=== PATIENT | female | born 1955 ===

== ENCOUNTER 2024-07-04 14:34 | Emergency (ER) | payer MEDICAID ==
[~2024-07-04] VITALS: Ht 152.4 cm; Wt 41.3 kg
[2024-07-04 14:41] VITALS: O2SAT 99
[2024-07-04] MEDS ORDERED: ONDA4TAB11 PO (18:38)
[2024-07-04] MEDS ORDERED: HYDR-3980 PO (18:38)
[2024-07-04] MEDS: ONDANSETRON ODT 4 MG TAB.RAPDIS SL ONE (18:40)
[2024-07-04] MEDS ORDERED: ONDANSETRON ODT 4 MG TAB.RAPDIS ONE (18:49)
[2024-07-04] MEDS ORDERED: HYDROCODONE/APAP 10-325 MG TABLET ONE (18:50)
[2024-07-04] MEDS ORDERED: PENICILLIN G BENZATHINE 2.4 MMU/4 ML DISP.SYRIN IM ONE (18:50)
[2024-07-04] MEDS: PENICILLIN G BENZATHINE 2.4 MMU/4 ML DISP.SYRIN IM ONE (19:00)
[2024-07-04] MEDS: HYDROCODONE/APAP 10-325 MG TABLET PO ONE (19:00)
== END 2024-07-04 19:35 | disposition home or self-care (01) ==
LOC: ER 14:34
DX: K08.89 Other specified disorders of teeth and supporting structures (principal)
CPT/HCPCS: 99283; 96372; J0561; A4606; A4663; Q0162